=== PATIENT | female | born 1995 ===

== ENCOUNTER 2025-06-01 22:16 | Emergency (ER) | payer OTHER ==
[2025-06-01] MEDS: Ondansetron 4 MG Tab.DIS PO ONE (22:34)
[2025-06-01] MEDS: Prochlorperazine 10 MG/2 ML SDV IVPUSH ONE (22:45)
[2025-06-01] MEDS: diphenhydrAMINE 50 MG/ML SDV IVPUSH ONE (22:46)
[2025-06-01 22:53] LABS: BASOPHILS ABSOLUTE AUTO 0.06 K/uL (0.00-0.20); BASOPHILS PERCENT AUTO 0.4 % (0.0-1.0); EOSINOPHILS ABSOLUTE AUTO 0.04 K/uL (0.00-0.45); EOSINOPHILS PERCENT AUTO 0.3 % (0.0-6.0); IMMATURE GRAN ABSOLUTE AUTO 0.05 K/uL (0.00-0.05); IMMATURE GRAN PERCENT AUTO 0.3 % (0.0-0.4); LYMPHOCYTES ABSOLUTE AUTO 1.21 K/uL (1.00-4.80); LYMPHOCYTES PERCENT AUTO 8.1 % (24.0-44.0); MEAN PLATELET VOLUME 11.0 fL (9.4-12.3); MONOCYTES ABSOLUTE AUTO 0.65 K/uL (0.00-0.80); MONOCYTES PERCENT AUTO 4.4 % (0.0-8.0); NEUTROPHILS ABSOLUTE AUTO 12.93 K/uL (1.80-7.70); NEUTROPHILS PERCENT AUTO 86.5 % (41.0-71.0); NRBC ABSOLUTE 0.00 K/uL (0.00-0.02); NRBC PERCENT 0.0 /100WBC (0.0-0.2); PLATELET COUNT,PLT 413 K/uL (150-400); RED BLOOD CELL COUNT 5.62 M/uL (4.10-5.30); WHITE BLOOD CELL COUNT,WBC 14.94 K/uL (3.9-11.3)
[2025-06-01 23:18] LABS: A/G RATIO 1.5 (0.9-1.6); ALANINE AMINOTRANSFERASE,ALT 22.0 IU/L (14-63); ASPARTATE AMNIOTRANSFERASE,AST 23.0 IU/L (15-37); BILIRUBIN TOTAL 0.6 mg/dL (0.2-1.0); BLOOD UREA NITROGEN,BUN 14.0 mg/dL (7.0-18.0); CARBON DIOXIDE,CO2 22.6 mmol/L (21.0-32.0); CHLORIDE,CL 104.0 mmol/L (98-107); CREATININE 1.0 mg/dL (0.6-1.0); EST CRCL DRUG DOSING (CG) 81.45 mL/min; GLUCOSE RANDOM 103.0 mg/dL (74-106); POTASSIUM,K 4.4 mmol/L (3.5-5.1); PROTEIN TOTAL,TP 7.5 g/dL (6.4-8.2); SODIUM,NA 140.0 mmol/L (136-145)
[2025-06-01 23:21] LABS: ESTIMATED GFR 79.0 mL/min (>60)
[2025-06-01] MEDS: Ketorolac 30 MG/ML SDV IVPUSH ONE (23:27)
== END 2025-06-01 23:38 | disposition home or self-care (01) ==
LOC: MW.ED 22:16
DX: S06.0X0A Concussion without loss of consciousness, initial encounter (principal); G43.909 Migraine, unspecified, not intractable, without status migrainosus; R11.2 Nausea with vomiting, unspecified; X58.XXXA Exposure to other specified factors, initial encounter
CPT/HCPCS: 36415; 70450; 80053; 83735; 84703; 85025; 96361; 96374; 96375; 99284; A9270; J0780; J1200; J1885; J7030; 99283